=== PATIENT | female | born 2000 | race Hispanic/Latino ===

== ENCOUNTER 2019-01-09 00:37 | Emergency (ER) | payer BC, SELFPAY ==
[2019-01-09] VITALS (7 sets, daily range): BP systolic 92–131; BP diastolic 53–99; PULSE 67–101; RESP 16–20; TEMP 36.4; O2SAT 98–100; BMI 25.7
[2019-01-09] MEDS: 0.9% Normal Saline 1,000 ML 999 ML IV (00:51)
[2019-01-09] MEDS: proMETHazine 25 MG/ML Syringe 12.5 MG IV (00:51)
--- NOTE | 2019-01-09 00:57 | CT_ITS ---
HISTORY: PT ARRIVES UNRESPONSIVE PRESUMED INTOXICATED, R/O TRUAMATIC INJURY EXAM/TECHNIQUE: CT Head or Brain W/O Contrast: Multiplanar reformats provided. COMPARISON: None. FINDINGS: # of images incl. paperwork: 234 No evidence of intracranial hemorrhage, mass, infarct or hydrocephalus. No skull fracture. CT/Brain/Head without Contrast IMPRESSION: Normal noncontrast CT of the brain. Individualized dose optimization techniques were used for this CT. at 0241 Reported and signed by: Anshul Pemberton MD Electronically Signed: Anshul Pemberton, at 2:40 EST Tel , Service support ,
--- NOTE | 2019-01-09 00:57 | EKG12_ITS ---
Test Reason : INTOXICATED Blood Pressure : / mmHG Vent. Rate : 086 BPM Atrial Rate : 086 BPM P-R Int : 164 ms QRS Dur : 084 ms QT Int : 370 ms P-R-T Axes : 070 081 042 degrees QTc Int : 442 ms Normal sinus rhythm Normal ECG Confirmed by SERAFIN DALEY, YOLIE ([id number]), manager editorial RK HUYNH ([id number]) on 01/14/2019 9:07:09 AM Referred By: NEFTALI Confirmed By:YOLIE BETANCOURT MD
[2019-01-09 01:07] LABS: Bedside Glucose 101 mg/dL (70-110)
[2019-01-09 01:16] LABS: Absolute Lymphocyte Count 4.21 X10^3/ul (0.83-4.51); Absolute Neutrophil Count 4.5 X10^3/uL (2.0-7.7); Basophil# 0.03 X10^3/uL; Basophil% 0.3 % (0-1); Eosinophil# 0.14 X10^3/uL; Eosinophils% 1.4 % (0-5); Hematocrit 36.5 % (37-47); Hemoglobin 12.1 g/dl (12.0-15.0); Lymphocyte # 4.21 X10^3/ul (4.0); Lymphocyte % 43.4 % (19-41); Mean Corp Hgb Conc 33.2 g/gl (32-36); Mean Corpuscular Hgb 28.6 pg (27.0-32.0); Mean Corpuscular Volume 86.3 fL (81-99); Mean Platelet Vol. 9.3 fl (6.2-12.0); Monocyte# 0.81 X10^3/uL; Monocyte% 8.4 % (0-10); Neutrophil # 4.46 X10^3/uL (2.7-7.7); Neutrophil % 46.1 % (47-70); POSITIVE COUNT NO; POSITIVE DIFFERENTIAL NO; POSITIVE MORPHOLOGY NO; Platelet Count 315 K/mm3 (150-450); RBC Distribution Width CV 13.4 % (11.6-14.6); RBC Distribution Width SD 42.7 fl (35.1-43.9); Red Blood Count 4.23 M/mm3 (4.2-5.4); White Blood Count 9.7 K/mm3 (4.4-11.0)
[2019-01-09 01:21] LABS: Mucous, Urine 0 SEEN /hpf (<or=2+); Squamous Epithelial Cells - UA 0 SEEN /hpf (5-10); White Blood Cells 0 SEEN /hpf (0-5)
[2019-01-09 01:24] LABS: AST(SGOT) 16 U/L (15-37); Alanine Aminotransfer ALT/SGPT 20 U/L (13-56); Albumin, Serum 3.8 g/dL (3.2-5.0); Alkaline Phosphatase 80 U/L (45-117); Anion Gap 10 (5-15); BUN 6 mg/dL (7-18); BUN/Creat Ratio 9.5 RATIO (10-20); Calcium,Total 7.9 mg/dL (8.5-10.1); Chloride 105 mmol/L (98-107); Creatinine, Serum 0.63 mg/dL (0.55-1.02); EST Glomerular Filtration Rate 127 mL/min (>60); Est Glom Filt Rate - Afr Amer 154 mL/min (>60); Estimated Creatinine Clearance 124.03 ml/min; Globulin 3.9 g/dL (2.2-4.2); Glucose 98 mg/dL (74-106); Potassium 3.3 mmol/L (3.5-5.1); Protein, Total 7.7 g/dL (6.4-8.2); Sodium Level 137 mmol/L (136-145)
--- NOTE | 2019-01-09 01:24 | RAD_ITS ---
HISTORY: PT FOUND INTOXICATED THIS AM EXAM: XR Chest 1 View: COMPARISON: None FINDINGS: # of images incl. paperwork: 1 LINES/DEVICES: None. LUNGS: Radiographically clear. No consolidation, edema or effusion. No pneumothorax. MEDIASTINUM AND CARDIOVASCULAR STRUCTURES: Cardiac silhouette not enlarged. Central airways and mediastinal contour are unremarkable. BONES AND SOFT TISSUES: Unremarkable. RAD/Chest 1 View (Portable) IMPRESSION: No radiographic evidence of acute cardiopulmonary disease. at 0159 Reported and signed by: Anshul Pemberton MD Electronically Signed: Anshul Pemberton, at 1:58 EST Tel , Service support ,
--- NOTE | 2019-01-09 01:31 | ED.RN ---
RECEIVED CALL FROM LAB. ETOH LEVEL 335. DR. LINDSAY NOTIFIED.
[2019-01-09 01:34] LABS: Color, Urine Yellow (Yellow); Glucose, Dipstick Normal (Normal); Ketone-Dipstick Negative (Negative); Leukocyte Esterase-Dipstick Negative /ul (Negative); Nitrite-Dipstick Negative (Negative); Occult Blood-Urine 10 /ul (Negative); Protein-Dipstick Negative (Negative); Specific Gravity, Urine 1.015 (1.002-1.030); Urine Bilirubin Dipstick Negative (Negative); Urine Clarity Sl. Cloudy (Clear); Urine Urobilinogen Normal (Normal)
[2019-01-09 01:35] LABS: Internal QC Validated? YES +Cl - CLEAR BKGD; Pregnancy, Urine Negative Negative
[2019-01-09 01:37] LABS: Allen Test POS; Base Excess -6 mmol/L (-2 to +2); Bicarbonate 20.5 mmol/L (22-26); Blood Gas Specimen Type ART; O2 Delivery Device Room Air; PO2 101 mmHG (75-100); SITE R Radial; SO2 97 % (95-99); Time Given 120; Total Carbon Dioxide 22 mmol/L; pCO2 41.5 mmHg (35-45)
[2019-01-09 01:41] LABS: Amorphous Sediment 1+; Bacteria 1+ /hpf (None Seen); Red Blood Cells-Urine 0-5 SEEN /hpf (0-5)
[2019-01-09 01:43] LABS: Amphetamine Urine VISTA NEGATIVE (<1000 ng/mL); Barbiturate Urine VISTA NEGATIVE (< 200 ng/mL); Benzodiazepine Urine VISTA NEGATIVE (< 200 ng/mL); Cocaine Urine VISTA NEGATIVE (< 300 ng/mL); Ecstacy Urine VISTA NEGATIVE (< 500 ng/mL); Methadone Urine VISTA NEGATIVE (< 300 ng/mL); PCP Urine VISTA NEGATIVE (< 25 ng/mL); THC Urine VISTA NEGATIVE (< 50 ng/mL); Vista UDS pH Range 6
--- NOTE | 2019-01-09 02:54 | ED.VISSUMM ---
- ER Visit Summary Date of Service: 01/09/19 Chief Complaint: Altered mental status History of Present Illness: The patient is a 18 F who presents with alcohol intoxication and altered mental status. Her boyfriend picked her up from a [place]. She has been drinking heavily. At home with her roommate she developed nausea and vomiting. The states she became increasingly confused and just began to make unintelligible noises so she was brought here for further evaluation. I am unable to obtain any history from the patient due to altered mental status. The roommate reports a history of anxiety but no other known medical history unknown medications or allergies. Physical Examination: Heart rate 101 vitals otherwise normal Patient is lethargic. GCS is E4 V2 and M5 for a total of 11 No obvious signs of trauma such as lacerations contusions abrasions hematomas Patient does appear to be protecting her airway Heart is regular rhythm tachycardia Lungs are clear The abdomen is soft nontender nondistended Extremities nontender Patient does not appear to have any focal or lateralizing neurological deficits Test Results: EKG shows sinus rhythm at a rate of 86. Chest x-ray shows no acute disease. CT of the head is normal. Labs notable for potassium 3.3. Urinalysis is normal. is negative. Urine drug screen is negative. Serum alcohol was 335. ABG shows pH 7.3, PCO2 41.5, PO2 101. Emergency Department Course and Treatment: Given patients altered mental status and inability to provide any history and only secondhand information from the roommate I did feel workup is necessary to rule out other serious life-threatening pathology. Workup as above is essentially unremarkable except severe alcohol intoxication. Patient will require a prolonged period of observation here. At the time of this dictation plan is observation and monitoring until clinically sober and discharge. Will likely need to be signed out to the oncoming morning physician for reevaluation prior to discharge. Treatment Plan: [] Disposition: Discharge pending reevaluation Impression: Alcohol intoxication This note was generated with [employer] software. It may contain incorrect words, spelling, and punctuation that were not noted in review of the chart prior to signing ED Disposition - Plan for ED Patient: Referrals: Care Physician,No Primary [Primary Care Provider] -
--- NOTE | 2019-01-09 02:59 | ED.DCSUM_ITS ---
- ER Visit Summary Date of Service: 01/09/19 Chief Complaint: Altered mental status History of Present Illness: The patient is a 18 F who presents with alcohol intoxication and altered mental status. Her boyfriend picked her up from a republic[place]. She has been drinking heavily. At home with her roommate she developed nausea and vomiting. The states she became increasingly confused and just began to make unintelligible noises so she was brought here for further evaluation. I am unable to obtain any history from the patient due to altered mental status. The roommate reports a history of anxiety but no other known medical history unknown medications or allergies. Physical Examination: Heart rate 101 vitals otherwise normal Patient is lethargic. GCS is E4 V2 and M5 for a total of 11 No obvious signs of trauma such as lacerations contusions abrasions hematomas Patient does appear to be protecting her airway Heart is regular rhythm tachycardia Lungs are clear The abdomen is soft nontender nondistended Extremities nontender Patient does not appear to have any focal or lateralizing neurological deficits Test Results: EKG shows sinus rhythm at a rate of 86. Chest x-ray shows no acute disease. CT of the head is normal. Labs notable for potassium 3.3. Urinalysis is normal. is negative. Urine drug screen is negative. Serum alcohol was 335. ABG shows pH 7.3, PCO2 41.5, PO2 101. Emergency Department Course and Treatment: Given patients altered mental status and inability to provide any history and only secondhand information from the roommate I did feel workup is necessary to rule out other serious life- threatening pathology. Workup as above is essentially unremarkable except severe alcohol intoxication. Patient will require a prolonged period of observation here. At the time of this dictation plan is observation and monitoring until clinically sober and discharge. Will likely need to be signed out to the oncoming morning physician for reevaluation prior to discharge. Treatment Plan: [] Disposition: Discharge pending reevaluation Impression: Alcohol intoxication This note was generated with [employer] software. It may contain incorrect words, spelling, and punctuation that were not noted in review of the chart prior to signing ED Disposition - Plan for ED Patient: Referrals: Care Physician,No Primary [Primary Care Provider] -
--- NOTE | 2019-01-09 02:59 | ED.DEP ---
ED Disposition - Plan for ED Patient: Instructions: ED Overdose Alcohol, ED Alcohol Intoxication Referrals: Care Physician,No Primary [Primary Care Provider] -
== END 2019-01-09 10:09 | disposition home or self-care (01) ==
PROVIDERS: Emergency Provider Emergency Medicine
DX: F10.129 Alcohol abuse with intoxication, unspecified (principal); R11.2 Nausea with vomiting, unspecified; F41.9 Anxiety disorder, unspecified
CPT/HCPCS: 36600; 51702; 70450; 71045; 80053; 80307; 80320; 81001; 81025; 82803; 82962; 85025; 93005; 96361; 96374; 99285; J7030; A4216; G0480